=== PATIENT | female | born 1995 | race Caucasian/White ===

== ENCOUNTER 2019-06-02 02:58 | Emergency (ER) | payer MEDICAID ==
[~2019-06-02] VITALS: Ht 167.6 cm; Wt 122.9 kg
[~2019-06-02 02:58] MED LIST: GENT5DRO4 EACHEYE
[2019-06-02 03:33] VITALS: BP 139/71
[2019-06-02] MEDS ORDERED: NAPR-56 PO (04:04)
[2019-06-02] MEDS ORDERED: DIPH25CA83 PO (04:04)
[2019-06-02] MEDS ORDERED: diphenhydrAMINE 25mg capsule PO ONE (04:05)
[2019-06-02] MEDS ORDERED: naproxen 500mg tablet PO ONE (04:05)
== END 2019-06-02 04:21 | disposition home or self-care (01) ==
LOC: ER 02:58
DX: H92.01 Otalgia, right ear (principal); J02.9 Acute pharyngitis, unspecified; R51 Headache; G89.29 Other chronic pain; F12.90 Cannabis use, unspecified, uncomplicated; Z98.890 Other specified postprocedural states; Z79.899 Other long term (current) drug therapy
CPT/HCPCS: 99283; Q0163

== ENCOUNTER 2019-10-19 13:36 | Emergency (ER) | payer MEDICAID ==
[~2019-10-19] VITALS: Ht 165.1 cm; Wt 127.0 kg
[~2019-10-19 13:36] MED LIST changes: +DIPH25CA83 PO
[2019-10-19 14:24] VITALS: BP 140/79
[2019-10-19 15:29] LABS: CLARITY,URINE SLIGHTLY CLOUDY (Clear); COLOR,URINE YELLOW (Yellow); GLUCOSE, URINE NEGATIVE (Neg); KETONES,URINE NEGATIVE (Neg); LEUKOCYTE ESTERASE ,URINE SMALL (Neg); NITRITES, URINE NEGATIVE (Neg); OCCULT BLOOD,URINE NEGATIVE (Neg); PROTEIN,URINE NEGATIVE (Neg); UROBILINOGEN,URINE 0.2 E.U/dL (0.2-1.0)
[2019-10-19 15:30] LABS: UA COLLECTION TYPE CLN CATCH MIDSTREAM; URINE HCG NEGATIVE (NEG)
[2019-10-19 15:35] LABS: BACTERIA,URINE 1+ /HPF (Neg); MUCUS STRANDS FEW /LPF (Neg); RBC,URINE NONE SEEN /HPF (0-2); SQUAMOUS EPITHELIAL CELL,UR MANY /LPF (FEW); WBC,URINE 0-4 /HPF (0-4)
== END 2019-10-19 16:27 | disposition home or self-care (01) ==
LOC: ER 13:38
DX: R10.32 Left lower quadrant pain (principal); G89.29 Other chronic pain; F12.90 Cannabis use, unspecified, uncomplicated; Z98.890 Other specified postprocedural states
CPT/HCPCS: 81001; 81025; 99283

== ENCOUNTER 2020-04-06 20:37 | Emergency (ER) | payer MEDICAID ==
[~2020-04-06] VITALS: Ht 167.6 cm; Wt 130.0 kg
[2020-04-06 20:39] VITALS: BP 109/68
[2020-04-06] MEDS ORDERED: orphenadrine citrate 60mg/2ml inj. IM ONE (20:55)
[2020-04-06] MEDS ORDERED: ketorolac tromethamine 15mg/ml inj. IM ONE (20:55)
[2020-04-06] MEDS ORDERED: METH-360 PO (20:59)
[2020-04-06] MEDS ORDERED: IBUP-1985 PO (20:59)
== END 2020-04-06 21:20 | disposition home or self-care (01) ==
LOC: ER 20:37
DX: M54.5 Low back pain (principal); G89.29 Other chronic pain; F12.90 Cannabis use, unspecified, uncomplicated; Z98.890 Other specified postprocedural states; Z79.899 Other long term (current) drug therapy
CPT/HCPCS: 96372; 99284; J1885; J2360

== ENCOUNTER 2023-07-02 20:11 | Emergency (ER) | payer MEDICAID ==
[~2023-07-02] VITALS: Ht 167.6 cm; Wt 136.4 kg
[~2023-07-02 20:11] MED LIST changes: +GENT5DRO22 EACHEYE; -GENT5DRO4 EACHEYE; +IBUP-1985 PO; +METH-360 PO
[2023-07-02 20:14] VITALS: BP 138/65; PULSE 93; TEMP 97.6; O2SAT 98
[2023-07-02] MEDS ORDERED: ketorolac trometh inj. 60 MG/2 ML VIAL IM ONE (23:15)
[2023-07-02] MEDS ORDERED: oxyCODONE/APAP 5-325mg tablet PO ONE (23:15)
[2023-07-02 23:36] VITALS: RESP 20
== END 2023-07-02 23:38 | disposition home or self-care (01) ==
LOC: ER 20:12
DX: S93.491A Sprain of other ligament of right ankle, initial encounter (principal); X58.XXXA Exposure to other specified factors, initial encounter; Y93.9 Activity, unspecified; Y92.89 Other specified places as the place of occurrence of the external cause; Y99.8 Other external cause status
CPT/HCPCS: 73610; 96372; 99283; J1885

== ENCOUNTER 2023-12-06 08:00 | Outpatient (CLI) | payer MEDICAID ==
[~2023-12-06 08:00] MED LIST changes: +GEN0.3OS EACHEYE; -GENT5DRO22 EACHEYE
[2023-12-06] MEDS ORDERED: MEDR150V IM (10:08)
[2023-12-06] MEDS ORDERED: ARIP400S3 IM (10:08)
[2023-12-06 10:21] LABS: BASOPHILS # (AUTO) 0.1 X10'3 (0-0.2); BASOPHILS % (AUTO) 0.6 % (0-1); EOSINOPHILS # (AUTO) 0.2 X10'3 (0-0.9); EOSINOPHILS % (AUTO) 2.5 % (0-6); LYMPHOCYTES # (AUTO) 2.9 X10'3 (1.1-4.8); LYMPHOCYTES % (AUTO) 30.4 % (21-51); MEAN CORPUSCULAR HEMOGLOBIN 25.3 PG (27.0-31.0); MEAN CORPUSCULAR HGB CONC 32.6 g/dL (33.0-36.5); MEAN CORPUSCULAR VOLUME 77.7 FL (78-98); MEAN PLATELET VOLUME 8.5 FL (7.4-10.4); MONOCYTES # (AUTO) 0.6 X10'3 (0-0.9); MONOCYTES % (AUTO) 6.6 % (2-12); NEUTROPHILS # (AUTO) 5.6 X10'3 (1.8-7.7); NEUTROPHILS % (AUTO) 59.9 % (42-75); PRE OP HEMOGLOBIN 13.4 g/dL (12.0-16.0); PRE OP PLATELET COUNT 257 X10'3 (140-440); PRE OP WHITE BLOOD COUNT 9.4 10'3 (4.8-10.8); RED BLOOD COUNT 5.28 X10'6 (4.20-5.60); RED CELL DISTRIBUTION WIDTH 14.9 % (11.5-14.5)
[2023-12-06 11:13] LABS: HCG SERUM QL NEGATIVE
[2023-12-06 11:55] LABS: ALBUMIN 3.6 G/DL (3.4-5.0); ALBUMIN/GLOBULIN RATIO 0.9 (1.1-1.5); ALKALINE PHOSPHATASE 94 IU/L (46-116); BLOOD UREA NITROGEN 9 MG/DL (7-18); BUN/CREATININE RATIO 9.9 (10.0-20.0); CALCIUM 9.5 MG/DL (8.5-10.1); CHLORIDE 104 MMOL/L (99-107); CREATININE 0.91 MG/DL (0.40-0.90); PRE OP ALT 40 U/L (30-65); PRE OP ANION GAP 11 (8-16); PRE OP AST 13 U/L (10-37); PRE OP BILIRUB, TOTAL 0.3 MG/DL (0.0-1.0); PRE OP POTASSIUM 4.1 MMOL/L (3.4-5.1); PRE OP SODIUM 138 MMOL/L (135-145); TOTAL CARBON DIOXIDE 23.4 MMOL/L (24-32); TOTAL PROTEIN 7.8 G/DL (6.4-8.2); eGFR 73 ML/MIN
[2023-12-06 12:07] LABS: PRE OP GLUCOSE 328 MG/DL (70-104)
== END 2023-12-06 23:00 | disposition home or self-care (01) ==
LOC: LAB 08:00 → EDSTATUS 12-12 07:30
PROVIDERS: ATTEND Obstetrics & Gynecology
DX: Z01.818 Encounter for other preprocedural examination (principal)
CPT/HCPCS: 36415; 80053; 83036; 84703; 85025; 86885; 86900; 86901; 93005